=== PATIENT | female | born 1990 | race Two or more races ===

== ENCOUNTER 2023-07-22 19:27 | Inpatient (IN) | payer MEDICAID, OTHER ==
[~2023-07-22] VITALS: Ht 149.9 cm; Wt 116.4 kg
[2023-07-22 19:54] VITALS: RESP 22; O2SAT 95
[2023-07-22] MEDS ORDERED: methylPREDNISolone SOD SUCC 125 MG/2 ML VL IM ONE (20:00)
[2023-07-22] MEDS ORDERED: ALBUTEROL SULF 2.5 MG/0.5ML(0.5%) NEB SOLN NEB ONE (20:00)
[2023-07-22] MEDS ORDERED: ALBUTEROL MEDNEB 2.5 mg/3ml NEB ONE (20:05)
[2023-07-22 20:17] LABS: Basophils # (auto) 0.2 10 ^3/uL (0-0.2); Basophils % (auto) 1.5 % (0.0-2.0); Eosinophils # (auto) 0.6 10 ^3/uL (0-0.8); Hematocrit 41.3 % (36.0-46.0); Hemoglobin 13.4 g/dL (12.2-16.2); Lymphocytes # (auto) 2.7 10 ^3/uL (0.4-5.4); Lymphocytes % (auto) 26.4 % (10.0-50.0); Mean Corpuscular Hemoglobin 27.5 pg (28.0-32.0); Mean Corpuscular Hgb Conc. 32.4 g/dL (32.0-36.0); Monocytes # (auto) 0.6 10 ^3/uL (0-1.3); Monocytes % (auto) 6.2 % (0.0-12.0); Neutrophils # (auto) 6.1 10 ^3/uL (1.6-8.6); Neutrophils % (auto) 59.9 % (37.0-80.0); Nucleated Red Blood Cells % 0.1 %; Red Blood Cells 4.85 10^6/uL (4.0-5.20); White Blood Cell 10.2 10^3/uL (4.4-10.8)
[2023-07-22 20:30] VITALS: PULSE 91; RESP 20; O2SAT 99
[2023-07-22 20:33] LABS: Alanine Aminotransferase 25 U/L (7-40); Albumin 4.5 g/dL (3.2-4.8); Alkaline Phosphatase 125 U/L (46-116); Anion Gap 8 (5-15); Aspartate Aminotransferase 13 U/L (13-40); BUN/Creatinine Ratio 6.1 (10.0-20.0); Blood Urea Nitrogen 5 mg/dL (9-23); Calcium 9.5 mg/dL (8.7-10.4); Carbon Dioxide 24 mmol/L (20-30); Chloride 107 mmol/L (98-107); Glucose 101 mg/dL (74-106); Potassium 3.6 mmol/L (3.5-5.1); Sodium 139 mmol/L (136-145)
[2023-07-22 20:34] LABS: Bilirubin, Total 0.3 mg/dL (0.2-1.0); Total Protein 8.4 g/dL (5.7-8.2)
[2023-07-22 20:35] LABS: INR 0.98 (0.9-1.15); Partial Thromboplastin Time 29.1 SEC (24.5-34.5); Prothrombin Time 10.3 sec (9.3-11.8)
[2023-07-22] MEDS: MAGNESIUM SULFATE 1GM/100ML 100 ML IV SCH ×2 (22:00→22:30)
[2023-07-22 22:10] LABS: Base Excess -1.4 mmol/L (-2.0-2.0)
[2023-07-23 02:14] VITALS: BP 146/96; PULSE 96; RESP 20; TEMP 98.4; O2SAT 96
[2023-07-23] MEDS ORDERED: ONDANSETRON HCL 4 MG/2 ML VIAL IV PRN (02:15)
[2023-07-23] MEDS ORDERED: NITROGLYCERIN 0.4 MG SL TAB SL PRN (02:15)
[2023-07-23] MEDS ORDERED: ACETAMINOPHEN 325 MG TAB PO PRN (02:15)
[2023-07-23] MEDS ORDERED: IPRATROPIUM BROM 0.5 MG/2.5ML INH SOL NEB PRN (02:15)
[2023-07-23] MEDS ORDERED: ALBUTEROL SULF 2.5 MG/0.5ML(0.5%) NEB SOLN NEB PRN (02:15)
[2023-07-23] MEDS ORDERED: MORPHINE SULFATE INJ 2 MG/ml SYRG IV PRN (02:15)
[2023-07-23] MEDS: SODIUM CHLORIDE 0.9% 1,000 ML IV SCH ×2 (02:57→18:55)
[2023-07-23 05:37] LABS: Alanine Aminotransferase 23 U/L (7-40); Albumin 4.5 g/dL (3.2-4.8); Alkaline Phosphatase 125 U/L (46-116); Anion Gap 8 (5-15); Aspartate Aminotransferase 10 U/L (13-40); Bilirubin, Total 0.3 mg/dL (0.2-1.0); Calcium 9.4 mg/dL (8.7-10.4); Carbon Dioxide 21 mmol/L (20-30); Chloride 107 mmol/L (98-107); Glucose 167 mg/dL (74-106); Potassium 4.2 mmol/L (3.5-5.1); Sodium 136 mmol/L (136-145); Total Protein 8.4 g/dL (5.7-8.2)
[2023-07-23 05:42] LABS: Basophils # (auto) 0 10 ^3/uL (0-0.2); Basophils % (auto) 0.2 % (0.0-2.0); Eosinophils # (auto) 0 10 ^3/uL (0-0.8); Eosinophils % (auto) 0.1 % (0.0-7.0); Hemoglobin 13.4 g/dL (12.2-16.2); Lymphocytes % (auto) 10.4 % (10.0-50.0); Mean Corpuscular Hemoglobin 27.5 pg (28.0-32.0); Mean Corpuscular Hgb Conc. 32.8 g/dL (32.0-36.0); Monocytes # (auto) 0.1 10 ^3/uL (0-1.3); Monocytes % (auto) 0.6 % (0.0-12.0); Neutrophils # (auto) 8.1 10 ^3/uL (1.6-8.6); Neutrophils % (auto) 88.7 % (37.0-80.0); Nucleated Red Blood Cells % 0.8 %; Red Blood Cells 4.88 10^6/uL (4.0-5.20); Red Cell Distribution Width 15.7 % (11.8-14.3); White Blood Cell 9.2 10^3/uL (4.4-10.8)
[2023-07-23 05:46] LABS: BUN/Creatinine Ratio 6.8 (10.0-20.0); Blood Urea Nitrogen < 5 mg/dL (9-23)
[2023-07-23] MEDS: methylPREDNISolone SOD SUCC 40 MG/ML VL IV SCH ×3 (06:01→21:49)
[2023-07-23 06:05] VITALS: O2SAT 99
[2023-07-23 08:16] VITALS: PULSE 96; RESP 20; O2SAT 100
[2023-07-23] MEDS: FAMOTIDINE (10MG/ML) 2ML VL IV SCH ×2 (10:00→21:48)
[2023-07-23] MEDS ORDERED: ALBUTEROL MEDNEB 2.5 mg/3ml NEB NEB SCH (12:30)
[2023-07-23] MEDS: cefTRIAXone 1GM/50ML D5W 50 ML IV SCH (13:31)
[2023-07-23] MEDS: AZITHROMYCIN 500MG/ 250ML 250 ML IV SCH (14:30)
[2023-07-23] MEDS ORDERED: IPRATROPIUM BROM 0.5 MG/2.5ML INH SOL NEB SCH (16:00)
[2023-07-23] MEDS: ACETYLCYSTEINE 20%(200MG/ML) SOL 4ML NEB SCH (18:00)
[2023-07-23 18:17] VITALS: PULSE 103; RESP 16; O2SAT 93
[2023-07-23 18:27] VITALS: PULSE 100; RESP 18; O2SAT 95
[2023-07-23 19:36] VITALS: PULSE 107; RESP 14; O2SAT 93
[2023-07-23] MEDS: HYDROcodone-ACET 5/325MG TAB PO PRN (21:50)
[2023-07-24] VITALS (11 sets, daily range): BP systolic 138; BP diastolic 94; PULSE 71–103; RESP 12–20; TEMP 97.6; O2SAT 92–100
[2023-07-24] MEDS: ALBUTEROL MEDNEB 2.5 mg/3ml NEB NEB SCH ×5 (03:30→23:14)
[2023-07-24] MEDS: IPRATROPIUM BROM 0.5 MG/2.5ML INH SOL NEB SCH ×5 (03:30→23:14)
[2023-07-24 04:51] LABS: Basophils # (auto) 0.1 10 ^3/uL (0-0.2); Basophils % (auto) 0.5 % (0.0-2.0); Eosinophils # (auto) 0 10 ^3/uL (0-0.8); Eosinophils % (auto) 0.2 % (0.0-7.0); Hematocrit 42.3 % (36.0-46.0); Hemoglobin 13.6 g/dL (12.2-16.2); Lymphocytes # (auto) 1.7 10 ^3/uL (0.4-5.4); Lymphocytes % (auto) 9.9 % (10.0-50.0); Mean Corpuscular Hemoglobin 27.6 pg (28.0-32.0); Mean Corpuscular Hgb Conc. 32.3 g/dL (32.0-36.0); Mean Corpuscular Volume 85.5 fL (80.0-100.0); Monocytes # (auto) 0.4 10 ^3/uL (0-1.3); Monocytes % (auto) 2.3 % (0.0-12.0); Neutrophils # (auto) 15.3 10 ^3/uL (1.6-8.6); Neutrophils % (auto) 87.1 % (37.0-80.0); Nucleated Red Blood Cells % 0.1 %; Red Blood Cells 4.94 10^6/uL (4.0-5.20); Red Cell Distribution Width 15.6 % (11.8-14.3); White Blood Cell 17.5 10^3/uL (4.4-10.8)
[2023-07-24 05:20] LABS: Alanine Aminotransferase 23 U/L (7-40); Albumin 4.4 g/dL (3.2-4.8); Alkaline Phosphatase 121 U/L (46-116); Anion Gap 9 (5-15); Aspartate Aminotransferase 9 U/L (13-40); BUN/Creatinine Ratio 9.8 (10.0-20.0); Bilirubin, Total 0.2 mg/dL (0.2-1.0); Blood Urea Nitrogen 8 mg/dL (9-23); Calcium 9.5 mg/dL (8.7-10.4); Carbon Dioxide 21 mmol/L (20-30); Chloride 107 mmol/L (98-107); Glucose 142 mg/dL (74-106); Potassium 5.1 mmol/L (3.5-5.1); Sodium 137 mmol/L (136-145); Total Protein 8.4 g/dL (5.7-8.2)
[2023-07-24] MEDS: ACETYLCYSTEINE 20%(200MG/ML) SOL 4ML NEB SCH ×5 (06:00→23:14)
[2023-07-24] MEDS: methylPREDNISolone SOD SUCC 40 MG/ML VL IV SCH ×3 (06:36→22:51)
[2023-07-24] MEDS: cefTRIAXone 1GM/50ML D5W 50 ML IV SCH (09:19)
[2023-07-24] MEDS: AZITHROMYCIN 500MG/ 250ML 250 ML IV SCH (10:15)
[2023-07-24] MEDS: FAMOTIDINE (10MG/ML) 2ML VL IV SCH ×2 (10:15→22:51)
[2023-07-24] MEDS: ENOXAPARIN SOD 40 MG/0.4 ML SYRINGE SC SCH (10:16)
[2023-07-24] MEDS: SODIUM CHLORIDE 0.9% 1,000 ML IV SCH (11:35)
[2023-07-24] MEDS: BUDESONIDE (INHALATION) 0.5 MG/2 ML NEB NEB SCH (18:24)
[2023-07-24] MEDS: DOCUSATE SOD 100 MG CAP PO PRN (23:06)
[2023-07-25] VITALS (18 sets, daily range): BP systolic 112–153; BP diastolic 61–91; PULSE 65–88; RESP 16–18; TEMP 98–98.9; O2SAT 93–100
[2023-07-25] MEDS: methylPREDNISolone SOD SUCC 40 MG/ML VL IV SCH ×3 (06:07→22:14)
[2023-07-25] MEDS: ALBUTEROL MEDNEB 2.5 mg/3ml NEB NEB SCH ×4 (06:31→23:53)
[2023-07-25] MEDS: IPRATROPIUM BROM 0.5 MG/2.5ML INH SOL NEB SCH ×4 (06:31→23:53)
[2023-07-25] MEDS: ACETYLCYSTEINE 20%(200MG/ML) SOL 4ML NEB SCH ×4 (06:31→23:53)
[2023-07-25 06:53] LABS: Chloride 104 mmol/L (98-107); Potassium 4.5 mmol/L (3.5-5.1); Sodium 137 mmol/L (136-145)
[2023-07-25 06:54] LABS: Anion Gap 9 (5-15); Calcium 9.5 mg/dL (8.7-10.4); Carbon Dioxide 24 mmol/L (20-30)
[2023-07-25 06:59] LABS: BUN/Creatinine Ratio 12.2 (10.0-20.0); Blood Urea Nitrogen 11 mg/dL (9-23); Glucose 150 mg/dL (74-106)
[2023-07-25 07:00] LABS: Magnesium 2.3 mg/dL (1.6-2.6)
[2023-07-25 07:02] LABS: Basophils # (auto) 0 10 ^3/uL (0-0.2); Basophils % (auto) 0.1 % (0.0-2.0); Eosinophils # (auto) 0 10 ^3/uL (0-0.8); Hematocrit 43.7 % (36.0-46.0); Hemoglobin 13.9 g/dL (12.2-16.2); Lymphocytes # (auto) 2.1 10 ^3/uL (0.4-5.4); Lymphocytes % (auto) 11.3 % (10.0-50.0); Mean Corpuscular Hgb Conc. 31.8 g/dL (32.0-36.0); Mean Corpuscular Volume 84.8 fL (80.0-100.0); Monocytes # (auto) 0.8 10 ^3/uL (0-1.3); Monocytes % (auto) 4.1 % (0.0-12.0); Neutrophils # (auto) 15.7 10 ^3/uL (1.6-8.6); Neutrophils % (auto) 84.5 % (37.0-80.0); Nucleated Red Blood Cells % 0.1 %; Red Blood Cells 5.16 10^6/uL (4.0-5.20); Red Cell Distribution Width 15.3 % (11.8-14.3); White Blood Cell 18.6 10^3/uL (4.4-10.8)
[2023-07-25] MEDS: HYDROcodone-ACET 5/325MG TAB PO PRN ×4 (09:08→22:15)
[2023-07-25] MEDS: ENOXAPARIN SOD 40 MG/0.4 ML SYRINGE SC SCH (09:08)
[2023-07-25] MEDS: DOCUSATE SOD 100 MG CAP PO PRN (09:08)
[2023-07-25] MEDS: cefTRIAXone 1GM/50ML D5W 50 ML IV SCH (09:08)
[2023-07-25] MEDS: FAMOTIDINE (10MG/ML) 2ML VL IV SCH ×2 (09:09→22:09)
[2023-07-25] MEDS: AZITHROMYCIN 500MG/ 250ML 250 ML IV SCH (09:54)
[2023-07-25] MEDS: BUDESONIDE (INHALATION) 0.5 MG/2 ML NEB NEB SCH ×2 (12:22→18:59)
[2023-07-26] VITALS (9 sets, daily range): BP systolic 112–140; BP diastolic 61–95; PULSE 61–98; RESP 18–20; TEMP 97.8–98.1; O2SAT 94–100
[2023-07-26] MEDS: methylPREDNISolone SOD SUCC 40 MG/ML VL IV SCH ×2 (06:15→14:00)
[2023-07-26] MEDS: IPRATROPIUM BROM 0.5 MG/2.5ML INH SOL NEB SCH ×2 (08:19→12:31)
[2023-07-26] MEDS: ACETYLCYSTEINE 20%(200MG/ML) SOL 4ML NEB SCH ×2 (08:19→12:31)
[2023-07-26] MEDS: BUDESONIDE (INHALATION) 0.5 MG/2 ML NEB NEB SCH (08:19)
[2023-07-26] MEDS: ALBUTEROL MEDNEB 2.5 mg/3ml NEB NEB SCH ×2 (08:19→12:31)
[2023-07-26] MEDS: ENOXAPARIN SOD 40 MG/0.4 ML SYRINGE SC SCH (09:51)
[2023-07-26] MEDS: FAMOTIDINE (10MG/ML) 2ML VL IV SCH (09:51)
[2023-07-26] MEDS: cefTRIAXone 1GM/50ML D5W 50 ML IV SCH (09:51)
[2023-07-26] MEDS: DOCUSATE SOD 100 MG CAP PO PRN (09:52)
[2023-07-26] MEDS: HYDROcodone-ACET 5/325MG TAB PO PRN (09:52)
[2023-07-26] MEDS: AZITHROMYCIN 500MG/ 250ML 250 ML IV SCH (10:37)
[2023-07-26] MEDS ORDERED: PRED20TA2 PO (13:08)
[2023-07-26] MEDS ORDERED: DOXY-448 PO (13:08)
[2023-07-26] MEDS ORDERED: TRAM50TA2 PO (13:08)
[2023-07-26] MEDS ORDERED: ALBUAER3 IN (13:08)
== END 2023-07-26 16:20 | disposition home or self-care (01) | DRG 133 ==
LOC: ER 19:27 → EDBD 19:27 → TELE 07-23 02:11 → TELE-WESTW 07-24 21:02
PROVIDERS: ADMIT Nurse Practitioner Family; ATTEND Internal Medicine Geriatric Medicine
DX: J96.01 Acute respiratory failure with hypoxia (principal); J15.69 Pneumonia due to other Gram-negative bacteria; E87.3 Alkalosis; Z68.43 Body mass index [BMI] 50.0-59.9, adult; J45.901 Unspecified asthma with (acute) exacerbation; I10 Essential (primary) hypertension; Z20.822 Contact with and (suspected) exposure to COVID-19; E66.01 Morbid (severe) obesity due to excess calories; F17.200 Nicotine dependence, unspecified, uncomplicated; Z79.51 Long term (current) use of inhaled steroids
CPT/HCPCS: 36415; 36600; 71045; 73610; 80048; 80053; 82805; 83735; 83880; 84484; 84702; 85025; 85610; 85730; 93005; 93970; 94640; G0378; J0696; J3490

== ENCOUNTER 2023-08-21 16:37 | Inpatient (IN) | payer MEDICAID ==
[~2023-08-21] VITALS: Ht 149.9 cm; Wt 114.3 kg
[~2023-08-21 16:37] MED LIST: ALBUAER3 IN; DOXY-448 PO; PRED20TA2 PO; TRAM50TA2 PO
[2023-08-21] MEDS ORDERED: IPRATROPIUM BROM 0.5 MG/2.5ML INH SOL NEB ONE ×2 (17:00→21:45)
[2023-08-21] MEDS ORDERED: ALBUTEROL SULF 2.5 MG/0.5ML(0.5%) NEB SOLN NEB ONE (17:00)
[2023-08-21 17:39] LABS: Basophils # (auto) 0 10 ^3/uL (0-0.2); Basophils % (auto) 0.5 % (0.0-2.0); Eosinophils # (auto) 0.6 10 ^3/uL (0-0.8); Eosinophils % (auto) 10.9 % (0.0-7.0); Hematocrit 39.5 % (36.0-46.0); Hemoglobin 12.8 g/dL (12.2-16.2); Lymphocytes # (auto) 1.8 10 ^3/uL (0.4-5.4); Lymphocytes % (auto) 32.9 % (10.0-50.0); Mean Corpuscular Hemoglobin 27.5 pg (28.0-32.0); Mean Corpuscular Hgb Conc. 32.5 g/dL (32.0-36.0); Mean Corpuscular Volume 84.6 fL (80.0-100.0); Monocytes # (auto) 0.5 10 ^3/uL (0-1.3); Neutrophils # (auto) 2.5 10 ^3/uL (1.6-8.6); Neutrophils % (auto) 45.7 % (37.0-80.0); Nucleated Red Blood Cells % 0.2 %; Red Blood Cells 4.67 10^6/uL (4.0-5.20); White Blood Cell 5.5 10^3/uL (4.4-10.8)
[2023-08-21 18:11] LABS: Alanine Aminotransferase 28 U/L (7-40); Albumin 4.2 g/dL (3.2-4.8); Alkaline Phosphatase 185 U/L (46-116); Anion Gap 10 (5-15); Aspartate Aminotransferase 25 U/L (13-40); BUN/Creatinine Ratio 7.9 (10.0-20.0); Bilirubin, Total 0.3 mg/dL (0.2-1.0); Blood Urea Nitrogen 6 mg/dL (9-23); Calcium 9.1 mg/dL (8.5-10.1); Carbon Dioxide 22 mmol/L (20-30); Chloride 108 mmol/L (98-107); Glucose 113 mg/dL (74-106); Potassium 4.5 mmol/L (3.5-5.1); Sodium 140 mmol/L (136-145); Total Protein 6.9 g/dL (5.7-8.2)
[2023-08-21] MEDS ORDERED: DexAMETHasone SOD PHOS 10MG/1ML VIAL INJ IV ONE (21:45)
[2023-08-21] MEDS ORDERED: VANCOMYCIN 1GM/250ML 250 ML IV ONE (21:45)
[2023-08-21] MEDS ORDERED: PIPERACILLIN-TAZOB 3.375GM 100 ML IV ONE (21:45)
[2023-08-21] MEDS ORDERED: ALBUTEROL MEDNEB 2.5 mg/3ml NEB NEB ONE (21:45)
[2023-08-21 23:00] VITALS: PULSE 113; RESP 20; O2SAT 94
[2023-08-22] VITALS (9 sets, daily range): BP systolic 144; BP diastolic 91; PULSE 87–100; RESP 14–20; TEMP 99.1; O2SAT 90–99
[2023-08-22 00:19] LABS: Urine WBC None Seen /hpf (0 - 5)
[2023-08-22 00:22] LABS: COVID19 ANTIGEN SOFIA FIA NEGATIVE (NEGATIVE); Rapid Influenza A Negative (Negative); Rapid Influenza B Negative (Negative)
[2023-08-22] MEDS ORDERED: IPRATROPIUM BROM 0.5 MG/2.5ML INH SOL NEB ONE (00:30)
[2023-08-22] MEDS ORDERED: ALBUTEROL MEDNEB 2.5 mg/3ml NEB NEB ONE ×2 (00:30)
[2023-08-22 01:20] LABS: Urine Bacteria NONE SEEN /hpf (None Seen); Urine Blood Negative /uL (Negative); Urine Clarity Clear (Clear); Urine Color Colorless (Yellow); Urine Protein, UAD TRACE (Negative); Urine Urobilinogen Normal (Negative)
[2023-08-22 01:21] LABS: Urine Specific Gravity > 1.050 (1.001-1.035)
[2023-08-22] MEDS ORDERED: TEMAZEPAM 15 MG CAP PO PRN (03:15)
[2023-08-22] MEDS ORDERED: ACETAMINOPHEN 325 MG TAB PO PRN (03:15)
[2023-08-22] MEDS ORDERED: MORPHINE SULFATE INJ 2 MG/ml SYRG IV PRN (03:15)
[2023-08-22] MEDS ORDERED: IPRATROPIUM BROM 0.5 MG/2.5ML INH SOL NEB PRN (03:15)
[2023-08-22] MEDS ORDERED: ONDANSETRON HCL 4 MG/2 ML VIAL IV PRN (03:15)
[2023-08-22] MEDS ORDERED: NITROGLYCERIN 0.4 MG SL TAB SL PRN (03:15)
[2023-08-22] MEDS ORDERED: cefTRIAXone 1GM/50ML D5W 50 ML IV SCH ×2 (09:00→18:00)
[2023-08-22] MEDS: ALBUTEROL MEDNEB 2.5 mg/3ml NEB NEB PRN ×2 (09:58→21:34)
[2023-08-22] MEDS: BUDESONIDE (INHALATION) 0.5 MG/2 ML NEB NEB SCH ×2 (09:58→21:33)
[2023-08-22] MEDS ORDERED: AZITHROMYCIN 500MG/ 250ML 250 ML IV SCH (10:00)
[2023-08-22] MEDS: ENOXAPARIN SOD 40 MG/0.4 ML SYRINGE SC SCH (11:56)
[2023-08-22] MEDS: methylPREDNISolone SOD SUCC 40 MG/ML VL IV SCH ×2 (13:01→21:15)
[2023-08-22] MEDS ORDERED: VANCOMYCIN PER PHARMACY 0 MG IV SCH (20:45)
[2023-08-22] MEDS ORDERED: VANCOMYCIN 1GM/250ML 250 ML IV ONE (23:00)
[2023-08-22] MEDS: CEFEPIME 1GM/ 50ML 50 ML IV SCH (23:17)
[2023-08-23] VITALS (8 sets, daily range): BP systolic 111–130; BP diastolic 60–71; PULSE 78–93; RESP 18–22; TEMP 97.3–98.1; O2SAT 91–94
[2023-08-23] MEDS: CEFEPIME 1GM/ 50ML 50 ML IV SCH (03:30)
[2023-08-23] MEDS ORDERED: VANCOMYCIN 1GM/250ML 250 ML IV ONE (06:00)
[2023-08-23 07:09] LABS: Basophils # (auto) 0 10 ^3/uL (0-0.2); Basophils % (auto) 0.3 % (0.0-2.0); Eosinophils # (auto) 0 10 ^3/uL (0-0.8); Hemoglobin 12.9 g/dL (12.2-16.2); Mean Corpuscular Hemoglobin 27.8 pg (28.0-32.0); Mean Corpuscular Hgb Conc. 33.1 g/dL (32.0-36.0); Mean Corpuscular Volume 83.9 fL (80.0-100.0); Monocytes # (auto) 0.6 10 ^3/uL (0-1.3); Monocytes % (auto) 6.8 % (0.0-12.0); Neutrophils # (auto) 6.8 10 ^3/uL (1.6-8.6); Neutrophils % (auto) 71.9 % (37.0-80.0); Red Blood Cells 4.65 10^6/uL (4.0-5.20); White Blood Cell 9.5 10^3/uL (4.4-10.8)
[2023-08-23 07:24] LABS: Alanine Aminotransferase 17 U/L (7-40); Albumin 4.5 g/dL (3.2-4.8); Alkaline Phosphatase 114 U/L (46-116); Anion Gap 8 (5-15); Aspartate Aminotransferase 10 U/L (13-40); BUN/Creatinine Ratio 9.3 (10.0-20.0); Blood Urea Nitrogen 7 mg/dL (9-23); CRP High Sensitivity 0.97 mg/dL (<1.0); Calcium 9.5 mg/dL (8.5-10.1); Carbon Dioxide 23 mmol/L (20-30); Chloride 107 mmol/L (98-107); Glucose 131 mg/dL (74-106); LDL Cholesterol 80 mg/dL (< 100); Potassium 4.3 mmol/L (3.5-5.1); Sodium 138 mmol/L (136-145); Triglycerides 81 mg/dL (< 150)
[2023-08-23 07:25] LABS: Bilirubin, Total 0.2 mg/dL (0.2-1.0); Cholesterol 144 mg/dL (< 200); HDL Cholesterol 46 mg/dL (40-59); Total Protein 7.7 g/dL (5.7-8.2)
[2023-08-23 07:34] LABS: Magnesium 2.2 mg/dL (1.6-2.6)
[2023-08-23] MEDS: BUDESONIDE (INHALATION) 0.5 MG/2 ML NEB NEB SCH (08:19)
[2023-08-23] MEDS ORDERED: PRED20TA2 PO (09:43)
[2023-08-23] MEDS ORDERED: FLUT1INH6 IN (09:43)
[2023-08-23] MEDS ORDERED: AMOX500T86 PO (09:43)
[2023-08-23] MEDS ORDERED: ALBU108A14 IN (09:44)
[2023-08-23] MEDS: methylPREDNISolone SOD SUCC 40 MG/ML VL IV SCH (09:56)
[2023-08-23] MEDS: ENOXAPARIN SOD 40 MG/0.4 ML SYRINGE SC SCH (09:58)
[2023-08-23 10:00] LABS: Base Excess -4.4 mmol/L (-2.0-2.0)
[2023-08-23] MEDS ORDERED: VANCOMYCIN 1GM/250ML 250 ML IV SCH (10:00)
[2023-08-23] MEDS ORDERED: METF-370 PO (12:43)
[2023-08-24 07:06] LABS: RPR Non Reactive (Non Reactive)
[2023-08-24 09:23] LABS: Hepatitis B Surface Antigen Negative (Negative)
[2023-08-24 09:45] LABS: Hepatitis B Core IgM Negative; Hepatitis C Antibody Negative (Negative)
[2023-08-24 09:46] LABS: Hepatitis A Ab IgM Negative
== END 2023-08-23 13:12 | disposition home or self-care (01) | DRG 133 ==
LOC: ER 16:37 → TELE 08-22 03:09 → TELE-WESTW 08-22 03:12
PROVIDERS: ADMIT Nurse Practitioner; ATTEND Internal Medicine Pulmonary Disease
DX: J96.20 Acute and chronic respiratory failure, unspecified whether with hypoxia or hypercapnia (principal); J15.69 Pneumonia due to other Gram-negative bacteria; J45.901 Unspecified asthma with (acute) exacerbation; Z68.43 Body mass index [BMI] 50.0-59.9, adult; J15.9 Unspecified bacterial pneumonia; I10 Essential (primary) hypertension; Z20.822 Contact with and (suspected) exposure to COVID-19; Y95 Nosocomial condition; E66.01 Morbid (severe) obesity due to excess calories; Z82.49 Family history of ischemic heart disease and other diseases of the circulatory system; Z83.3 Family history of diabetes mellitus
CPT/HCPCS: 36415; 36600; 71045; 71275; 80053; 80061; 80074; 81001; 82306; 82607; 82805; 83036; 83735; 83880; 84443; 84484; 84702; 85025; 85379; 86141; 86592; 86703; 87081; 87426; 87804; 94640; 96365; 96367; 96375; G0378; J0696; J1100; J2543

== ENCOUNTER 2024-01-27 10:13 | Emergency (ER) | payer MEDICAID ==
[~2024-01-27] VITALS: Ht 149.9 cm; Wt 112.1 kg
[~2024-01-27 10:13] MED LIST changes: +ALB5IS NEB; +ALBU108A14 IN; -ALBUAER3 IN; +AMOX500T86 PO; -DOXY-448 PO; +FLUT1INH6 IN; +METF-370 PO; -TRAM50TA2 PO
[2024-01-27 10:44] VITALS: PULSE 97
[2024-01-27 11:21] VITALS: BP 142/86
[2024-01-27] MEDS: methylPREDNISolone SOD SUCC 125 MG/2 ML VL IM ONE (11:28)
[2024-01-27] MEDS: IPRATROPIUM BROM 0.5 MG/2.5ML INH SOL NEB ONE (11:50)
[2024-01-27] MEDS: ALBUTEROL SULF 2.5 MG/0.5ML(0.5%) NEB SOLN NEB ONE (11:51)
[2024-01-27 12:12] VITALS: RESP 16; O2SAT 97
== END 2024-01-27 12:22 | disposition home or self-care (01) ==
LOC: ER 10:13
DX: J45.901 Unspecified asthma with (acute) exacerbation (principal); I10 Essential (primary) hypertension
CPT/HCPCS: 94640; 96372; 99283; J2930; J7644

== ENCOUNTER 2024-09-17 21:17 | Emergency (ER) | payer MEDICAID ==
[~2024-09-17] VITALS: Ht 147.3 cm; Wt 117.5 kg
[2024-09-17] MEDS: ALBUTEROL SULF 2.5 MG/0.5ML(0.5%) NEB SOLN NEB ONE (21:58)
[2024-09-17] MEDS: IPRATROPIUM BROM 0.5 MG/2.5ML INH SOL NEB ONE (21:58)
[2024-09-17] MEDS: methylPREDNISolone SOD SUCC 125 MG/2 ML VL IM ONE (22:23)
[2024-09-17] MEDS ORDERED: FLUT1INH6 IN (23:51)
[2024-09-17] MEDS ORDERED: PRED20TA2 PO (23:51)
--- NOTE | 2024-09-17 23:52 | ED.PDOC ---
SOB-HPI HPI Comments 33-year-old female complaining of wheezing and tightness in her chest which started today. States she has been dealing with a cough and congestion for the last two days. Says she ran out of her Advair Diskus. No fever no chills. Intermittent shortness of breath due to the coughing. Nothing makes it better, nothing makes it worse. Chief Complaint: Asthma Time Seen by MD: 21:38 Primary Care Provider: Unknown Reviewed notes: Nurses Notes Mode of Arrival: Ambulatory Severity: Mild Past Medical History PAST MEDICAL HISTORY: Asthma, HTN Surgical History: Denies all surgeries [employer] History: Denies all [employer] Hx Family History Family History: Reviewed,noncontributory to illness Social History Smoker: Non-Smoker Alcohol: Denies ETOH Use Drugs: Denies Drug Use Lives In: Home Constitutional: denies: chills, diaphoresis, fatigue, fever, malaise, sweats, weakness, others EENTM: denies: blurred vision, double vision, ear bleeding, ear discharge, ear drainage, ear pain, ear ringing, eye pain, eye redness, hearing loss, mouth pain, mouth swelling, nasal discharge, nose bleeding, nose congestion, nose pain, photophobia, tearing, throat pain, throat swelling, voice changes, others Respiratory: reports: cough, wheezing; denies: hemoptysis, orthopnea, SOB at rest, shortness of breath, SOB with excertion, stridor, others Cardiovascular: denies: chest pain, dizzy spells, diaphoresis, Dyspnea on exertion, edema, irregular heart beat, left arm pain, lightheadedness, palpitations, PND, syncope, others Gastrointestinal: denies: abdomen distended, abdominal pain, blood streaked bowels, constipated, diarrhea, dysphagia, difficulty swallowing, hematemesis, melena, nausea, poor appetite, poor fluid intake, rectal bleeding, rectal pain, vomiting, others Genitourinary: denies: abnormal vagina bleeding, burning, dyspareunia, dysuria, flank pain, frequency, hematuria, incontinence, pain, , vagina discharge, urgency, others Neurological: denies: dizziness, fainting, headache, left sided numbness, left sided weakness, numbness, paresthesia, pre-existing deficit, right sided numbness, right sided weakness, seizure, speech problems, tingling, tremors, weakness, others Musculoskeletal: denies: back pain, gout, joint pain, joint swelling, muscle pain, muscle stiffness, neck pain, others Integumetry: denies: bruises, change in color, change in hair/nails, dryness, laceration, lesions, lumps, rash, wounds, others Allergic/Immunocompromised: denies: Difficulty Healing, Frequent Infections, Hives, Itching, others Hematologic/Lymphatic: denies: anemia, blood clots, easy bleeding, easy bruising, swollen glands, others Physical Exam General Appearance: No Apparent Distress, Normal HEENT: Normal ENT Inspection, Pharynx Normal, TMs Normal Neck: Full Range of Motion, Non-Tender, Normal, Normal Inspection Respiratory: Chest Non-Tender, No Accessory Muscle Use, No Respiratory Distress, Wheezing Cardiovascular: No Edema, No JVD, No Murmur, No Gallop, Normal Peripheral Pulses, Regular Rate/Rhythm Breast Exam: Deferred Gastrointestinal: No Organomegaly, Non Tender, No Pulsatile Mass, Normal Bowel Sounds, Soft Genitalia: Deferred Pelvic: Deferred Rectal: Deferred Extremities: No calf tenderness, Normal capillary refill, Normal inspection, Normal range of motion, Non-tender, No pedal edema Musculoskeletal : Apperance: Normal Neurologic: Alert, slitter cut off operator II-XII nml as Tested, No Motor Deficits, Normal Affect, Normal Mood, No Sensory Deficits Cerebellar Function: Normal Reflexes: Normal Skin: Dry, Normal Color, Warm Lymphatic: No Adenopathy Was a procedure done? Was a procedure done?: No Differential Dx Differential Diagnosis: Asthma, Bronchitis X-Ray, Labs, Meds, VS Vital Signs Date Time Temp Pulse Resp B/P (MAP) Pulse Ox O2 Delivery O2 Flow Rate FiO2 09/17/24 21:58 20 96 Room Air* 0 21 21 09/17/24 21:44 98.8 86 20 158/85 (109) 98 09/17/24 21:44 20 98 Room Air* 0 21 Current Medications Medications (Trade) Dose Ordered Sig/Rey Route Start Time Stop Time Status Last Admin Albuterol (Ventolin Medneb) 5 mg ONCE ONCE NEB 09/17/24 21:45 09/17/24 21:46 DC 09/17/24 21:58 Ipratropium [place] (Atrovent Medneb) 0.5 mg ONCE ONCE NEB 09/17/24 21:45 09/17/24 21:46 DC 09/17/24 21:58 Methylprednisolone Sodium Succinate (Solu Medrol) 125 mg ONCE ONCE IM 09/17/24 22:00 09/17/24 22:01 DC 09/17/24 22:23 X-Ray, Labs, Meds, VS Comment Imaging: X-rays and CT scans were reviewed and interpreted by this provider, imaging shows no fractures and no pathological disease. Pending radiology review. Laboratory: Labs reviewed and interpreted by this provider. No significant abnormalities noted. Patient has prior medical visits reviewed. Med reconciliation performed Vital signs reviewed Time of 1ST Reevaluation: 23:52 Reevaluation 1ST: Improved Patient Education/Counseling: Diagnosis, Treatment, Need For Follow Up (Patient advised to follow-up in the emergency room in the next 24 to 48 hours if symptoms do not improve. Advised follow-up with PCP in the next 3 to 5 days. Patient verbalized understanding. ) Family Education/Counseling: Diagnosis, Treatment Departure 1 Departure Time of Disposition: 23:52 Impression: Primary Impression: Acute asthma Additional Impression: Asthmatic bronchitis Qualified Codes: J45.31 - Mild persistent asthma with (acute) exacerbation Disposition: HOME / SELF CARE / HOMELESS Condition: Fair e-Prescriptions Fluticasone Furoate-Vilanterol (Breo Ellipta 200-25 Mcg/INH) 1 Inh Inh 1 INH IN DAILY for 30 Days, #30 INHALER Prov: YARELIS FOOTE 09/17/24 Prednisone (Prednisone) 20 Mg Tab 20 MG PO BID for 5 Days, #10 TAB Prov: YARELIS FOOTE 09/17/24 Discharged With: Self Critical Care Note Critical Care Time?: No Stability Stability form required: No Heart Score Heart Score: Heart Score Response (Comments) Value History N/A 0 EKG N/A 0 Age N/A 0 Risk Factors N/A 0 Troponin N/A 0 Total 0 YARELIS FOOTE Sep 17, 2024 23:52
[2024-09-18 00:16] VITALS: BP 140/83; PULSE 97; RESP 16; TEMP 98.5
[2024-09-18 01:37] VITALS: O2SAT 98
== END 2024-09-18 02:02 | disposition home or self-care (01) ==
LOC: ER 21:17
DX: J45.909 Unspecified asthma, uncomplicated (principal); I10 Essential (primary) hypertension
CPT/HCPCS: 94640; 96372; 99283; J2919

== ENCOUNTER 2025-06-24 08:49 | Emergency (ER) | payer MEDICAID ==
[~2025-06-24] VITALS: Ht 149.9 cm; Wt 112.0 kg
[2025-06-24] MEDS: predniSONE 20 MG TAB PO ONE (09:52)
[2025-06-24] MEDS: ALBUTEROL SULF 2.5 MG/0.5ML(0.5%) NEB SOLN NEB ONE (09:58)
[2025-06-24] MEDS: IPRATROPIUM BROM 0.5 MG/2.5ML INH SOL NEB ONE (09:59)
--- NOTE | 2025-06-24 10:05 | ED.PDOC ---
History of Present Illness HPI Comments 34-YEAR-OLD FEMALE PRESENTS TO THE ER WITH PRIOR MEDICAL HISTORY OF ASTHMA AND THE CHIEF COMPLAINT OF SHORTNESS A BREATH. PATIENT REPORTS ON HAVING AN INHALER AT HOME BUT IN HIS CURRENTLY OUT WELL NEEDING A BREATHING TREATMENT DUE FROM HAVING SHORTNESS A BREATH FOR ONE WEEK. DENIES CHILLS, FEVER, N/V/D, CP. NO OTHER ASSOCIATED SYMPTOMS, MODIFIERS, RECENT INJURIES OR SICK CONTACTS PRESENT AT THIS TIME. Chief Complaint: Asthma Time Seen by MD: 10:05 Primary Care Provider: Unknown Reviewed Notes: Nurses Notes, Medications, Allergies Allergies: Coded Allergies: NO KNOWN ALLERGIES (Unverified , 07/22/23) Home Meds Active Scripts Fluticasone Furoate-Vilanterol (Breo Ellipta 200-25 Mcg/INH) 1 Inh Inh, 1 INH IN DAILY for 30 Days, #30 INHALER Prov:YARELIS FOOTEP 09/17/24 Prednisone (Prednisone) 20 Mg Tab, 20 MG PO BID for 5 Days, #10 TAB Prov:YARELIS FOOTE 09/17/24 Albuterol Sulfate (Ventolin) 2.5 Mg/0.5 Ml Nb, 1 VIAL NEB Q4HR, #60 VIAL 1 Refill Prov:OFELIA WAGNER 01/27/24 Prednisone (Prednisone) 20 Mg Tab, 60 MG PO DAILY for 6 Days, #18 TAB Prov:OFELIA WAGNER 01/27/24 Albuterol Sulfate (Proair Digihaler) 108 Mcg/Act Aer, 108 MCG IN Q6HPRN PRN for 30 Days, #30 AER Prov:OFELIA WAGNER 01/27/24 Metformin Hydrochloride (Metformin Hcl) 500 Mg Tab, 1 TAB PO BID, #60 TAB 3 Refills Prov:DERRICK HERNANDEZ MD 08/23/23 Amoxicillin & Pot Clavulanate (Augmentin) 500 Mg Tab, 1 TAB PO BID, #14 TAB Prov:DERRICK HERNANDEZ MD 08/23/23 Information Source: Patient Mode of Arrival: Ambulatory Severity: Moderate Timing: Weeks Duration: Since onset Prehospital treatment: None Past Medical History PAST MEDICAL HISTORY: Asthma, HTN Surgical History: Denies all surgeries [employer] History: Denies all [employer] Hx Family History Family History: Reviewed,noncontributory to illness, Unknown Social History Smoker: Non-Smoker Alcohol: Denies ETOH Use Drugs: Denies Drug Use Lives In: Home Constitutional: denies: chills, diaphoresis, fatigue, fever, malaise, sweats, weakness, others EENTM: denies: blurred vision, double vision, ear bleeding, ear discharge, ear drainage, ear pain, ear ringing, eye pain, eye redness, hearing loss, mouth pain, mouth swelling, nasal discharge, nose bleeding, nose congestion, nose pain, photophobia, tearing, throat pain, throat swelling, voice changes, others Respiratory: reports: shortness of breath; denies: cough, hemoptysis, orthopnea, SOB at rest, SOB with excertion, stridor, wheezing, others Cardiovascular: denies: chest pain, dizzy spells, diaphoresis, Dyspnea on exertion, edema, irregular heart beat, left arm pain, lightheadedness, palpitations, PND, syncope, others Gastrointestinal: denies: abdomen distended, abdominal pain, blood streaked bowels, constipated, diarrhea, dysphagia, difficulty swallowing, hematemesis, melena, nausea, poor appetite, poor fluid intake, rectal bleeding, rectal pain, vomiting, others Genitourinary: denies: abnormal vagina bleeding, burning, dyspareunia, dysuria, flank pain, frequency, hematuria, incontinence, pain, , vagina discharge, urgency, others Neurological: denies: dizziness, fainting, headache, left sided numbness, left sided weakness, numbness, paresthesia, pre-existing deficit, right sided numbness, right sided weakness, seizure, speech problems, tingling, tremors, weakness, others Musculoskeletal: denies: back pain, gout, joint pain, joint swelling, muscle pain, muscle stiffness, neck pain, others Integumetry: denies: bruises, change in color, change in hair/nails, dryness, laceration, lesions, lumps, rash, wounds, others Allergic/Immunocompromised: denies: Difficulty Healing, Frequent Infections, Hives, Itching, others Hematologic/Lymphatic: denies: anemia, blood clots, easy bleeding, easy bruising, swollen glands, others Endocrine: denies: excessive hunger, excessive sweating, excessive thirst, excessive urination, flushing, intolerance to cold, intolerance to heat, unexplained weight gain, unexplained weight loss, others Psychiatric: denies: anxiety, bipolar disorder, depression, hopeless, panic disorder, schizophrenia, sleepless, suicidal, others Physical Exam General Appearance: No Apparent Distress, Normal HEENT: Normal ENT Inspection, Pharynx Normal, TMs Normal Neck: Full Range of Motion, Non-Tender, Normal, Normal Inspection Respiratory: Chest Non-Tender, Lungs Clear, No Accessory Muscle Use, No Respiratory Distress, Normal Breath Sounds Cardiovascular: No Edema, No JVD, No Murmur, No Gallop, Normal Peripheral Pulses, Regular Rate/Rhythm Breast Exam: Deferred Gastrointestinal: No Organomegaly, Non Tender, No Pulsatile Mass, Normal Bowel Sounds, Soft Genitalia: Deferred Pelvic: Deferred Rectal: Deferred Extremities: No calf tenderness, Normal capillary refill, Normal inspection, Normal range of motion, Non-tender, No pedal edema Musculoskeletal : Apperance: Normal Neurologic: Alert, educational coordinator II-XII nml as Tested, No Motor Deficits, Normal Affect, Normal Mood, No Sensory Deficits Cerebellar Function: Normal Reflexes: Normal Skin: Dry, Normal Color, Warm Lymphatic: No Adenopathy Was a procedure done? Was a procedure done?: No Differential Dx Considerations may include: Asthma exacerbation X-Ray, Labs, Meds, VS Vital Signs Date Time Temp Pulse Resp B/P (MAP) Pulse Ox O2 Delivery O2 Flow Rate FiO2 06/24/25 11:36 97.5 80 16 155/88 (110) 94 97.5 06/24/25 09:59 18 95 Room Air* 0 21 06/24/25 08:55 24 90 Room Air* 0 21 06/24/25 08:51 99.0 79 24 94/76 88 99.0 Current Medications Medications (Trade) Dose Ordered Sig/Rey Route Start Time Stop Time Status Last Admin Albuterol (Ventolin Medneb) 5 mg ONCE ONCE NEB 06/24/25 09:30 06/24/25 09:31 DC 06/24/25 09:58 Ipratropium [place] (Atrovent Medneb) 0.5 mg ONCE ONCE NEB 06/24/25 09:30 06/24/25 09:31 DC 06/24/25 09:59 Prednisone 40 mg ONCE ONCE PO 06/24/25 09:30 06/24/25 09:31 DC 06/24/25 09:52 Time of 1ST Reevaluation: 10:35 Reevaluation 1ST: Unchanged Patient Education/Counseling: Diagnosis, Treatment, Prognosis Family Education/Counseling: No Family Present SEPSIS Sepsis Screen Date sepsis recognized/suspect: Jun 24, 2025 Time Sepsis recognized/suspect: 850 Recent Procedure: No Respiratory Rate >20: Yes Heart Rate >90: No Temp<36 C (96.8 F) or >38.3 C: No SBP <90 or MAP <65 mmHG: No New Acute Mental Status Change: No Is the patient on CPAP, BIPAP,: No Vital Signs Date Time Temp Pulse Resp B/P (MAP) Pulse Ox O2 Delivery O2 Flow Rate FiO2 06/24/25 11:36 97.5 80 16 155/88 (110) 94 97.5 06/24/25 09:59 18 95 Room Air* 0 21 06/24/25 08:55 24 90 Room Air* 0 06/24/25 08:51 99.0 79 24 94/76 88 99.0 Medications Medications Dose Ordered Sig/Rey Route Start Time Stop Time Status Last Admin Dose Admin Albuterol 5 mg ONCE ONCE NEB 06/24/25 09:30 06/24/25 09:31 DC 06/24/25 09:58 Ipratropium [place] 0.5 mg ONCE ONCE NEB 06/24/25 09:30 06/24/25 09:31 DC 06/24/25 09:59 Prednisone 40 mg ONCE ONCE PO 06/24/25 09:30 06/24/25 09:31 DC 06/24/25 09:52 Departure 1 Departure Time of Disposition: 11:40 (Patient likely with asthma exacerbation. Patient is feeling better and now has clear lungs. We will discharge patient home with outpatient follow up) Impression: Primary Impression: Acute asthma Disposition: 01 HOME / SELF CARE / HOMELESS Condition: Stable Additional Instructions: You likely had an asthma exacerbation. You should use your inhaler as directed. Your prescribed steroids. Please take as directed. It is important to follow up with the regular doctor within 1 week. If your symptoms worsen or you have any other concerns please return to the emergency room. e-Prescriptions Albuterol Sulfate (VENTOLIN MDI) 90 Mcg Ih 90 MCG IN QID PRN for 7 Days, #1 INH Prov: TERRELL HATHAWAY MD 06/24/25 Prednisone (Prednisone) 20 Mg Tab 40 MG PO DAILY for 5 Days, #10 MG Prov: TERRELL HATHAWAY MD 06/24/25 Discharged With: Self Critical Care Note Critical Care Time?: No Stability Stability form required: No I personally scribed for TERRELL HATHAWAY MD ([email or web address]) on 06/24/25 at 10:05. Electronically submitted by Michael Fields ([email or web address]). TERRELL HATHAWAY MD Jun 24, 2025 10:05
[2025-06-24 11:36] VITALS: BP 155/88; TEMP 97.5
[2025-06-24] MEDS ORDERED: PRED20TA2 PO (11:41)
[2025-06-24] MEDS ORDERED: ALBUAER3 IN (11:41)
[2025-06-24 11:46] VITALS: PULSE 80; RESP 16; O2SAT 94
== END 2025-06-24 11:57 | disposition home or self-care (01) ==
LOC: ER 08:49
DX: J45.909 Unspecified asthma, uncomplicated (principal)
CPT/HCPCS: 94640; 99283; J7512

== ENCOUNTER 2025-07-22 09:54 | Emergency (ER) | payer MEDICAID ==
[~2025-07-22] VITALS: Ht 149.9 cm; Wt 107.3 kg
[~2025-07-22 09:54] MED LIST changes: +ALBUAER3 IN
--- NOTE | 2025-07-22 10:47 | ED.PDOC ---
History of Present Illness HPI Comments Ms. Blair is a 34 year old female with PMHx of asthma, who presents today with chief complaint of shortness of breath. The patient states she ran out of her rescue inhaler approximately two weeks ago and has since had progressively worsening shortness of breath. She reports that last night she awoke with a dry cough, shortness of breath, and chest tightness. She denies recent illness, fever, rhinorrhea, nausea, vomiting, palpitations, and chest pain. She states she utilizes her rescue inhaler every day, wakes up nightly due to coughing and shortness of breath, and shortness of breaths her ex her daily activities. Due to persistence of symptoms, the patient came to the emergency department for further evaluation. Chief Complaint: Asthma Time Seen by MD: 10:05 Primary Care Provider: Unknown Allergies: Coded Allergies: NO KNOWN ALLERGIES (Unverified , 07/22/23) Home Meds Active Scripts Albuterol Sulfate (VENTOLIN MDI) 90 Mcg Ih, 90 MCG IN Q2HPRN PRN for 7 Days, #1 INH Prov:TERRELL HTAHAWAY MD 07/22/25 Albuterol Sulfate (VENTOLIN MDI) 90 Mcg Ih, 90 MCG IN QID PRN for 7 Days, #1 INH Prov:TERRELL HATHAWAY MD 06/24/25 Prednisone (Prednisone) 20 Mg Tab, 40 MG PO DAILY for 5 Days, #10 MG Prov:TERRELL HATHAWAY MD 06/24/25 Fluticasone Furoate-Vilanterol (Breo Ellipta 200-25 Mcg/INH) 1 Inh Inh, 1 INH IN DAILY for 30 Days, #30 INHALER Prov:YARELIS FOOTEP 09/17/24 Prednisone (Prednisone) 20 Mg Tab, 20 MG PO BID for 5 Days, #10 TAB Prov:YARELIS FOOTEP 09/17/24 Albuterol Sulfate (Ventolin) 2.5 Mg/0.5 Ml Nb, 1 VIAL NEB Q4HR, #60 VIAL 1 Refill Prov:OFELIA WAGNER 01/27/24 Prednisone (Prednisone) 20 Mg Tab, 60 MG PO DAILY for 6 Days, #18 TAB Prov:OFELIA WAGNER 01/27/24 Albuterol Sulfate (Proair Digihaler) 108 Mcg/Act Aer, 108 MCG IN Q6HPRN PRN for 30 Days, #30 AER Prov:OFELIA WAGNER 01/27/24 Metformin Hydrochloride (Metformin Hcl) 500 Mg Tab, 1 TAB PO BID, #60 TAB 3 Refills Prov:DERRICK HERNANDEZ MD 08/23/23 Amoxicillin & Pot Clavulanate (Augmentin) 500 Mg Tab, 1 TAB PO BID, #14 TAB Prov:DERRICK HERNANDEZ MD 08/23/23 Mode of Arrival: Ambulatory Past Medical History PAST MEDICAL HISTORY: Asthma, HTN Surgical History: Denies all surgeries 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 Family History Family History: Reviewed,noncontributory to illness, Unknown Social History Smoker: Non-Smoker Alcohol: Denies ETOH Use Drugs: Denies Drug Use Lives In: Home Constitutional: denies: chills, diaphoresis, fatigue, fever, malaise, sweats, weakness, others EENTM: denies: blurred vision, double vision, ear bleeding, ear discharge, ear drainage, ear pain, ear ringing, eye pain, eye redness, hearing loss, mouth pain, mouth swelling, nasal discharge, nose bleeding, nose congestion, nose pain, photophobia, tearing, throat pain, throat swelling, voice changes, others Respiratory: reports: cough, shortness of breath Cardiovascular: denies: chest pain, dizzy spells, diaphoresis, Dyspnea on exertion, edema, irregular heart beat, left arm pain, lightheadedness, pal pitations, PND, syncope, others Gastrointestinal: denies: abdomen distended, abdominal pain, blood streaked bowels, constipated, diarrhea, dysphagia, difficulty swallowing, hematemesis, melena, nausea, poor appetite, poor fluid intake, rectal bleeding, rectal pain, vomiting, others Genitourinary: denies: abnormal vagina bleeding, burning, dyspareunia, dysuria, flank pain, frequency, hematuria, incontinence, pain, , vagina discharge, urgency, others Neurological: denies: dizziness, fainting, headache, left sided numbness, left sided weakness, numbness, paresthesia, pre-existing deficit, right sided numbness, right sided weakness, seizure, speech problems, tingling, tremors, weakness, others Musculoskeletal: denies: back pain, gout, joint pain, joint swelling, muscle pain, muscle stiffness, neck pain, others Integumetry: denies: bruises, change in color, change in hair/nails, dryness, laceration, lesions, lumps, rash, wounds, others Allergic/Immunocompromised: denies: Difficulty Healing, Frequent Infections, Hives, Itching, others Hematologic/Lymphatic: denies: anemia, blood clots, easy bleeding, easy b ruising, swollen glands, others Endocrine: denies: excessive hunger, excessive sweating, excessive thirst, excessive urination, flushing, intolerance to cold, intolerance to heat, unexplained weight gain, unexplained weight loss, others Physical Exam General Appearance: Normal, Obese HEENT: Normal ENT Inspection, PERRL/EOMI, Pharynx Normal Neck: Full Range of Motion, Non-Tender, Normal Inspection Respiratory: Chest Non-Tender, Lungs Clear, No Accessory Muscle Use, No Respiratory Distress, Wheezing (Bilateral wheezing ) Cardiovascular: No Edema, No JVD, No Murmur, No Gallop, Normal Peripheral Pulses, Regular Rate/Rhythm Breast Exam: Deferred Gastrointestinal: No Organomegaly, Non Tender, No Pulsatile Mass, Normal Bowel Sounds Genitalia: Deferred Pelvic: Deferred Rectal: Deferred Extremities: Normal capillary refill, Normal inspection, Normal range of motion, Non-tender, No pedal edema Neurologic: No Motor Deficits, Normal Affect, Normal Mood, No Sensory Deficits Cerebellar Function: Normal Reflexes: Normal Skin: Normal Color Lymphatic: No Adenopathy Was a procedure done? Was a procedure done?: No Differential Dx Considerations may include: Asthma exacerbation, bronchitis, pneumonia, influenza, acute respiratory failure X-Ray, Labs, Meds, VS Vital Signs Date Time Temp Pulse Resp B/P (MAP) Pulse Ox O2 Delivery O2 Flow Rate FiO2 07/22/25 12:09 98.0 77 16 148/82 (104) 98 98.0 07/22/25 10:59 14 97 Room Air* 0 21 07/22/25 10:53 98.2 83 20 151/83 (105) 94 98.2 07/22/25 10:53 83 20 94 Room Air* 0 21 07/22/25 09:56 98.2 78 18 120/63 95 98.2 Lab Test 07/22/25 10:40 Range/Units Urine Test Negative Negative Current Medications Medications (Trade) Dose Ordered Sig/Rey Route Start Time Stop Time Status Last Admin Albuterol (Ventolin Medneb) 5 mg ONCE ONCE NEB 07/22/25 10:45 07/22/25 10:46 DC 07/22/25 10:57 Ipratropium [place] (Atrovent Medneb) 0.5 mg ONCE ONCE NEB 07/22/25 10:45 07/22/25 10:46 DC 07/22/25 10:57 Prednisone 40 mg ONCE ONCE PO 07/22/25 10:45 07/22/25 10:46 DC 07/22/25 10:51 Time of 1ST Reevaluation: 12:03 Reevaluation 1ST: Resolved Patient Education/Counseling: Diagnosis, Treatment Family Education/Counseling: No Family Present SEPSIS Sepsis Screen Date sepsis recognized/suspect: Jul 22, 2025 Time Sepsis recognized/suspect: 957 Recent Procedure: No On Antibiotic Therapy: No Respiratory Rate >20: No Heart Rate >90: No Temp<36 C (96.8 F) or >38.3 C: No SBP <90 or MAP <65 mmHG: No New Acute Mental Status Change: No Is the patient on CPAP, BIPAP,: No Physician Orders Chest Portable (07/22/25 10:41) Vital Signs Date Time Temp Pulse Resp B/P (MAP) Pulse Ox O2 Delivery O2 Flow Rate FiO2 07/22/25 12:09 98.0 77 16 148/82 (104) 98 98.0 07/22/25 10:59 14 97 Room Air* 0 07/22/25 10:53 98.2 83 20 151/83 (105) 94 98.2 07/22/25 10:53 83 20 94 Room Air* 0 07/22/25 09:56 98.2 78 18 120/63 95 98.2 Medications Medications Dose Ordered Sig/Rey Route Start Time Stop Time Status Last Admin Dose Admin Albuterol 5 mg ONCE ONCE NEB 07/22/25 10:45 07/22/25 10:46 DC 07/22/25 10:57 Ipratropium [place] 0.5 mg ONCE ONCE NEB 07/22/25 10:45 07/22/25 10:46 DC 07/22/25 10:57 Prednisone 40 mg ONCE ONCE PO 07/22/25 10:45 07/22/25 10:46 DC 07/22/25 10:51 Departure 1 Departure Time of Disposition: 12:26 (The patient came in today of breath concerning for asthma exacerbation, bronchitis, pneumonia, influenza, acute respiratory failure.1. I have ordered and indepently interpreted the follwing: chest xray which shows benign findings. 2. The patient was given oral corticosteroids and breathing treatments leading to resolution of symptom. Due to review of data, the patient is unlikely to have bronchitis, pneumonia, influenza, or respiratory failure. She is stable at this time. She will be discharged with recommendations to follow up with her pcp.) Impression: Primary Impression: Acute asthma exacerbation Disposition: HOME / SELF CARE / HOMELESS Condition: Stable Additional Instructions: He presented today with shortness of breath Your workup today was benign including a chest x-ray Your shortness of breath is most likely related to an acute exacerbation of your asthma It is important that you follow-up with your primary care physician within a week for further evaluation You are being discharged with a prescription for a new rescue inhaler If symptoms worsen or you have any other concerns please return to the emergency department. e-Prescriptions Albuterol Sulfate (VENTMALIHA TO) 90 Mcg Ih 90 MCG IN Q2HPRN PRN for 7 Days, #1 INH Prov: TERRELL HATHAWAY MD 07/22/25 Discharged With: Self Critical Care Note Critical Care Time?: No Stability Stability form required: PRAVEENA Wilson RESIDENT Jul 22, 2025 10:47
[2025-07-22] MEDS: predniSONE 20 MG TAB PO ONE (10:51)
[2025-07-22 10:53] VITALS: PULSE 83; RESP 20; O2SAT 94
[2025-07-22] MEDS: ALBUTEROL SULF 2.5 MG/0.5ML(0.5%) NEB SOLN NEB ONE (10:57)
[2025-07-22] MEDS: IPRATROPIUM BROM 0.5 MG/2.5ML INH SOL NEB ONE (10:57)
--- NOTE | 2025-07-22 11:41 | DVH ---
XY CHEST PORTABLE, HISTORY: sob COMPARISON: XY CHEST XRAY 1 VIEW on DOS: 12/02/23, CT CT ANGIO CHEST CONTRAST on DOS: 08/21/23, XY CHES T PORTABLE on DOS: 08/21/23 XY CHEST XRAY 1 VIEW on DOS: 12/02/23, CT CT ANGIO CHEST CONTRAST on DOS: 08/21/23, XY CHEST PORTABLE o n DOS: 08/21/23 TECHNICAL DATA: 1 view of the chest was obtained. FINDINGS: Lines and tubes: None Cardiomediastinal silhouette: normal Pulmonary vasculature: normal Lung expansion: normal Lung airspace: normal Lung interstitium: normal Pleura: normal Pneumothorax: no Bones: Unremarkable Other: no IMPRESSION: No acute intrathoracic abnormality.
[2025-07-22] MEDS ORDERED: ALBUAER3 IN (12:35)
[2025-07-22 12:55] VITALS: BP 148/92; PULSE 78; RESP 18; TEMP 98.6; O2SAT 95
== END 2025-07-22 13:05 | disposition home or self-care (01) ==
LOC: ER 09:54
DX: J45.901 Unspecified asthma with (acute) exacerbation (principal); I10 Essential (primary) hypertension; J45.909 Unspecified asthma, uncomplicated; Z79.84 Long term (current) use of oral hypoglycemic drugs; Z79.899 Other long term (current) drug therapy
CPT/HCPCS: 71045; 81025; 94640; 99284; J7512

== ENCOUNTER 2025-07-30 08:01 | Emergency (ER) | payer MEDICAID ==
[~2025-07-30] VITALS: Ht 149.9 cm; Wt 108.0 kg
--- NOTE | 2025-07-30 08:28 | ED.PDOC ---
SOB-HPI HPI Comments A 34 YEAR OLD FEMALE PRESENTS TO THE ED WITH COMPLAINT OF SOB. PATIENT REPORTS THAT SHE HAS BEEN EXPERIENCING SOB WITH ASSOCIATED COUGH FOR THE PAST FEW DAYS. PATIENT RELAYS THAT SHE HAS HISTORY OF ASTHMA, BUT SHE HAD RAN OUT OF ALBUTEROL FOR HER NEBULIZER AT HOME. PATIENT DENIES FEVER, CHILLS, CHEST PAIN, ABDOMINAL PAIN, NAUSEA, VOMITING, HEADACHE, OR OTHER COMPLAINTS. NO OTHER SYMPTOMS OR MODIFYING FACTORS AT THIS TIME. PATIENT IS ALERT, ORIENTED X 4, AND HAS STEADY GAIT. Chief Complaint: Asthma Time Seen by MD: 08:27 Primary Care Provider: Unknown Reviewed notes: Nurses Notes, Medications, Allergies Information Source: Patient Mode of Arrival: Ambulatory Severity: Mild, Moderate Timing: Hours Duration: Since onset Context: At Rest PE Risk Factors: None History of: Asthma Prehospital treatment: None Modifying Factors: Inhaler Associated Signs and Symptoms: Wheeze If cough with SOB: Non-Productive Past Medical History PAST MEDICAL HISTORY: Asthma, HTN Surgical History: Denies all surgeries PAPERHANGER APPRENTICE History: Denies all PAPERHANGER APPRENTICE Hx Family History Family History: Reviewed,noncontributory to illness, Unknown Social History Smoker: Non-Smoker Alcohol: Denies ETOH Use Drugs: Denies Drug Use Lives In: Home Constitutional: denies: chills, diaphoresis, fatigue, fever, malaise, sweats, weakness, others EENTM: denies: blurred vision, double vision, ear bleeding, ear discharge, ear drainage, ear pain, ear ringing, eye pain, eye redness, hearing loss, mouth pain, mouth swelling, nasal discharge, nose bleeding, nose congestion, nose pain, photophobia, tearing, throat pain, throat swelling, voice changes, others Respiratory: reports: cough, wheezing; denies: hemoptysis, orthopnea, SOB at rest, shortness of breath, SOB with excertion, stridor, others Cardiovascular: denies: chest pain, dizzy spells, diaphoresis, Dyspnea on exertion, edema, irregular heart beat, left arm pain, lightheadedness, palpitations, PND, syncope, others Gastrointestinal: denies: abdomen distended, abdominal pain, blood streaked bowels, constipated, diarrhea, dysphagia, difficulty swallowing, hematemesis, melena, nausea, poor appetite, poor fluid intake, rectal bleeding, rectal pain, vomiting, others Genitourinary: denies: abnormal vagina bleeding, burning, dyspareunia, dysuria, flank pain, frequency, hematuria, incontinence, pain, , vagina discharge, urgency, others Neurological: denies: dizziness, fainting, headache, left sided numbness, left sided weakness, numbness, paresthesia, pre-existing deficit, right sided numbness, right sided weakness, seizure, speech problems, tingling, tremors, weakness, others Musculoskeletal: denies: back pain, gout, joint pain, joint swelling, muscle pain, muscle stiffness, neck pain, others Integumetry: denies: bruises, change in color, change in hair/nails, dryness, laceration, lesions, lumps, rash, wounds, others Allergic/Immunocompromised: denies: Difficulty Healing, Frequent Infections, Hives, Itching, others Hematologic/Lymphatic: denies: anemia, blood clots, easy bleeding, easy bruising, swollen glands, others Endocrine: denies: excessive hunger, excessive sweating, excessive thirst, excessive urination, flushing, intolerance to cold, intolerance to heat, unexplained weight gain, unexplained weight loss, others Psychiatric: denies: anxiety, bipolar disorder, depression, hopeless, panic disorder, schizophrenia, sleepless, suicidal, others All Other Systems: Reviewed and Negative Physical Exam General Appearance: No Apparent Distress, Obese HEENT: Normal ENT Inspection, PERRL/EOMI, Pharynx Normal, TMs Normal Neck: Full Range of Motion, Non-Tender, Normal, Normal Inspection Respiratory: Chest Non-Tender, Decreased Breath Sounds, Expiration, No Accessory Muscle Use, No Respiratory Distress, Wheezing (MILD WHEEZING ) Cardiovascular: No Edema, No JVD, No Murmur, No Gallop, Normal Peripheral Pulses, Regular Rate/Rhythm Breast Exam: Deferred Gastrointestinal: No Organomegaly, Non Tender, No Pulsatile Mass, Normal Bowel Sounds, Soft Genitalia: Deferred Pelvic: Deferred Rectal: Deferred Extremities: No calf tenderness, Normal capillary refill, Normal inspection, Normal range of motion, Non-tender, No pedal edema Musculoskeletal : Apperance: Normal Neurologic: Alert, trimmer machine II-XII nml as Tested, No Motor Deficits, Normal Affect, Normal Mood, No Sensory Deficits Cerebellar Function: Normal Reflexes: Normal Skin: Dry, Normal Color, Warm Peripheral Pulses: 2+ carotid (R), 2+ carotid (L) Lymphatic: No Adenopathy Was a procedure done? Was a procedure done?: No Differential Dx Differential Diagnosis: Asthma, Bronchitis, Sinusitis, Allergic Rhinitis, Pharyngitis X-Ray, Labs, Meds, VS Vital Signs Date Time Temp Pulse Resp B/P (MAP) Pulse Ox O2 Delivery O2 Flow Rate FiO2 07/30/25 08:05 98.4 103 20 152/96 91 98.4 X-Ray, Labs, Meds, VS Comment EXTERNAL MEDICAL RECORDS REVIEWED: [NONE] INDEPENDENT HISTORIANS: [NONE] SOCIAL DETERMINANTS OF HEALTH: [NONE] LABS ORDERED: NONE REVIEWED AND INTERPRETED RESULTS: NONE IMAGING ORDERED: NONE TREATMENTS ORDERED: DUONEB BREATHING TREATMENT, SOLU-MEDROL 125MG IM PROCEDURES PERFORMED: NONE CRITICAL CARE TIME: NONE I HAVE DISCUSSED THE PATIENT WITH THE ATTENDING PHYSICIAN, DR. HATHAWAY, HE AGREES WITH THE PATIENT'S PLAN OF CARE AND DISPOSITION. BASED ON HISTORY OF PRESENT ILLNESS, AND PHYSICAL EXAM, PATIENT WILL BE DISCHARGED HOME. DISCUSSED PLAN FOR DISCHARGE HOME WITH RX ALBUTEROL AND PREDNISONE. MEDICATION WARNINGS GIVEN. SHARED DECISION MAKING: DISCUSSED WITH PATIENT THAT THEIR WORKUP WAS NORMAL. P ATIENT INSTRUCTED TO FOLLOW UP WITH PRIMARY CARE PROVIDER IN 1-2 DAYS FOR RE- EVALUATION OF SYMPTOMS. PATIENT VERBALIZES UNDERSTANDING TO RETURN TO ED FOR NEW OR WORSENING SYMPTOMS OR IF FOLLOW UP WITH PCP CANNOT BE OBTAINED. PATIENT FEELS COMFORTABLE GOING HOME AT THIS TIME. ALL QUESTIONS ADDRESSED AT TIME OF DISCHARGE. Time of 1ST Reevaluation: 09:00 Reevaluation 1ST: Improved Patient Education/Counseling: Diagnosis, Treatment, Need For Follow Up Family Education/Counseling: Diagnosis, Treatment, No Family Present Medical Screening: No EMC Exist At This Time SEPSIS Sepsis Screen Date sepsis recognized/suspect: Jul 30, 2025 Time Sepsis recognized/suspect: 808 Recent Procedure: No On Antibiotic Therapy: No Respiratory Rate >20: No Heart Rate >90: No Temp<36 C (96.8 F) or >38.3 C: No SBP <90 or MAP <65 mmHG: No New Acute Mental Status Change: No Is the patient on CPAP, BIPAP,: No Physician Orders Methylprednisolone Sod Succ (Solu Medrol (07/30/25 08:30) Albuterol Medneb (Ventolin Medneb) (07/30/25 08:30) Ipratropium Medneb (Atrovent Medneb) (07/30/25 08:30) Vital Signs Date Time Temp Pulse Resp B/P (MAP) Pulse Ox O2 Delivery O2 Flow Rate FiO2 07/30/25 08:05 98.4 103 20 152/96 91 98.4 Departure 1 Departure Time of Disposition: 09:00 Impression: Primary Impression: Acute asthma exacerbation Qualified Codes: J45.21 - Mild intermittent asthma with (acute) exacerbation Disposition: 01 HOME / SELF CARE / HOMELESS Condition: Stable Additional Instructions: FOLLOW-UP WITH PCP IN 1 TO 2 DAYS. TAKE MEDICATIONS PRESCRIBED. RETURN TO ED FOR ANY NEW OR WORSENING SYMPTOMS. e-Prescriptions Albuterol Sulfate (Albuterol Sulfate Hfa) 108 Mcg/Act Aer 108 MCG IN TID, #120 AER Prov: OFELIA WAGNER 07/30/25 Albuterol Sulfate (Ventolin) 2.5 Mg/0.5 Ml Nb 1 VIAL NEB Q6HR, #120 VIAL Prov: OFELIA WAGNER 07/30/25 Prednisone (Prednisone) 20 Mg Tab 60 MG PO DAILY for 6 Days, #18 TAB Prov: OFELIA WAGNER 07/30/25 Discharged With: Self Critical Care Note Critical Care Time?: No Stability Stability form required: No Heart Score Heart Score: Heart Score Response (Comments) Value History N/A 0 EKG N/A 0 Age N/A 0 Risk Factors N/A 0 Troponin N/A 0 Total 0 I personally scribed for OFELIA WAGNER ([email or web address]) on 07/30/25 at 08:28. Electronically submitted by Arturo Shaw ([email or web address]). OFELIA WAGNER Jul 30, 2025 08:28
[2025-07-30] MEDS ORDERED: ALBU108A5 IN (08:30)
[2025-07-30] MEDS ORDERED: ALB5IS NEB (08:30)
[2025-07-30] MEDS: methylPREDNISolone SOD SUCC 125 MG/2 ML VL IM ONE (08:32)
[2025-07-30] MEDS: ALBUTEROL SULF 2.5 MG/0.5ML(0.5%) NEB SOLN NEB ONE (08:35)
[2025-07-30] MEDS: IPRATROPIUM BROM 0.5 MG/2.5ML INH SOL NEB ONE (08:35)
[2025-07-30 08:53] VITALS: BP 152/96; PULSE 103; RESP 18; TEMP 98.4; O2SAT 94
== END 2025-07-30 08:55 | disposition home or self-care (01) ==
LOC: ER 08:01
DX: J45.901 Unspecified asthma with (acute) exacerbation (principal); I10 Essential (primary) hypertension; Z79.899 Other long term (current) drug therapy
CPT/HCPCS: 94640; 96372; 99283; J2919